=== PATIENT | male | born 1985 | race Caucasian/White ===

== ENCOUNTER 2019-12-25 18:04 | Emergency (ER) | payer OTHER ==
[~2019-12-25] VITALS: Ht 175.3 cm; Wt 95.2 kg
[~2019-12-25 18:04] MED LIST: ALBU90OI INH; AMOX500 PO; CIPR500 PO; CYCL10 PO; HYDGUAL120 PO; IBUP800 PO; NAPR500EC PO; ONDA8 PO; OXYACE5T PO; RXHYDGUAS PO; RXNAPNA550 PO; RXOXYACE PO
[2019-12-25] MEDS ORDERED: IBUP600 PO (21:25)
[2019-12-25] MEDS ORDERED: CYCL10 PO (21:25)
[2019-12-25] MEDS ORDERED: PRED20 PO (21:25)
== END 2019-12-25 22:02 | disposition home or self-care (01) ==
LOC: ER 18:04
DX: M54.5 Low back pain (principal); R07.9 Chest pain, unspecified; Z88.2 Allergy status to sulfonamides; Z88.5 Allergy status to narcotic agent; F17.220 Nicotine dependence, chewing tobacco, uncomplicated
CPT/HCPCS: 72100; 93005; 93010; 96372; 99283-25; J1885; J7512

== ENCOUNTER 2020-12-26 14:10 | Day surgery (SDC) | payer OTHER ==
[~2020-12-26] VITALS: Ht 172.7 cm; Wt 89.8 kg
[~2020-12-26 14:10] MED LIST changes: +IBUP600 PO; +PRED20 PO
[2020-12-26] MEDS ORDERED: PANT40 (14:26)
[2020-12-26] MEDS ORDERED: MELATONIN5 M1 (14:27)
--- NOTE | 2020-12-26 14:34 | NUR ---
12/26/20 1434 DEYANIRA ACEVEDO FIRST ATTEMPT MISSED BY DIONNE IN RIGHT HAND. SECOND ATTEMPT SUCCESSFUL IN RIGHT HAND BY DIONNE.
== END 2020-12-26 16:15 | disposition home or self-care (01) ==
LOC: ORSCSDS 14:10
DX: R13.10 Dysphagia, unspecified (principal); K22.70 Barrett's esophagus without dysplasia; K44.9 Diaphragmatic hernia without obstruction or gangrene
CPT/HCPCS: 88305; J2250; J2704; J7120